=== PATIENT | female | born 1965 | race Two or more races ===

== ENCOUNTER 2020-02-11 17:02 | Inpatient (IN) | payer SELFPAY ==
[~2020-02-11] VITALS: Ht 162.6 cm; Wt 95.7 kg
[2020-02-11] MEDS ORDERED: DOXYCYCLINE 100MG/250ML 250 ML IV ONE (19:00)
[2020-02-11] MEDS ORDERED: AZITHROMYCIN 500MG/ 250ML 250 ML IV ONE (19:00)
[2020-02-11] MEDS ORDERED: DexAMETHasone SOD PHOS 10MG/1ML VIAL INJ IV ONE (19:00)
[2020-02-11] MEDS ORDERED: SODIUM CHLORIDE 0.9% 1,000 ML IV ONE (19:00)
[2020-02-11 22:58] LABS: Basophils # (auto) 0 10 ^3/uL (0-0.2); Basophils % (auto) 0.2 % (0.0-2.0); Eosinophils # (auto) 0 10 ^3/uL (0-0.8); Hematocrit 39.6 % (36.0-46.0); Hemoglobin 13.3 g/dL (12.2-16.2); Lymphocytes # (auto) 0.7 10 ^3/uL (0.4-5.4); Lymphocytes % (auto) 8.4 % (10.0-50.0); Mean Corpuscular Hemoglobin 28.3 pg (28.0-32.0); Mean Corpuscular Hgb Conc. 33.7 g/dL (32.0-36.0); Mean Corpuscular Volume 84.2 fL (80.0-100.0); Monocytes # (auto) 0.4 10 ^3/uL (0-1.3); Monocytes % (auto) 4.8 % (0.0-12.0); Neutrophils # (auto) 7.7 10 ^3/uL (1.6-8.6); Neutrophils % (auto) 86.6 % (37.0-80.0); Nucleated Red Blood Cells % 0.1 %; Platelet Count (auto) 248 10^3/uL (140-450); Red Cell Distribution Width 14.4 % (11.8-14.3); White Blood Cell 8.9 10^3/uL (4.4-10.8)
[2020-02-11 23:18] LABS: INR 0.98 (0.9-1.15); Partial Thromboplastin Time 31.3 sec (23.0-31.2)
[2020-02-11 23:24] LABS: Albumin 3.3 g/dL (3.4-5.0); Anion Gap 7 (5-15); Blood Urea Nitrogen 24 mg/dL (7-18); Calcium 8.7 mg/dL (8.5-10.1); Carbon Dioxide 28 mmol/L (21-32); Chloride 95 mmol/L (98-107); Glucose 116 mg/dL (74-106); Potassium 4.1 mmol/L (3.5-5.1); Sodium 130 mmol/L (136-145)
[2020-02-11 23:30] LABS: Alanine Aminotransferase 69 U/L (13-56); Alkaline Phosphatase 115 U/L (45-117); Aspartate Aminotransferase 86 U/L (15-37); BUN/Creatinine Ratio 25.5; Bilirubin, Total 0.4 mg/dL (0.2-1.0); GFR African American 80 mL/min; GFR Non-African American 66 mL/min; Total Protein 8.6 g/dL (6.4-8.2)
[2020-02-12] MEDS ORDERED: ACETAMINOPHEN 325 MG TAB PO ONE (00:30)
[2020-02-12] MEDS ORDERED: NITROGLYCERIN 0.4 MG SL TAB SL PRN (06:30)
[2020-02-12] MEDS ORDERED: DEXTROSE (50%) 50ML SYRG IV PRN (06:30)
[2020-02-12] MEDS ORDERED: DOCUSATE SOD 100 MG CAP PO PRN (06:30)
[2020-02-12] MEDS ORDERED: ONDANSETRON HCL 4 MG/2 ML VIAL IV PRN (06:30)
[2020-02-12] MEDS ORDERED: MORPHINE SULF INJ 2 MG/ML SYRINGE 1ML IV PRN (06:30)
[2020-02-12] MEDS: ACCU-CHEK COMFORT CURVE STRIP VI SCH ×4 (08:34→22:08)
[2020-02-12] MEDS: InsuLIN REG 1unit/0.01ml Soln (100units/ml) SC SCH ×4 (08:34→22:08)
[2020-02-12] MEDS: BUDESONIDE (INHALATION) 180 MCG IH IN SCH ×2 (09:15→20:55)
[2020-02-12] MEDS: ZINC SULFATE 220mg CAP or TAB PO SCH (10:02)
[2020-02-12] MEDS: CHOLECALCIFEROL (VITD3) 2,000 UNIT CAP PO SCH (10:02)
[2020-02-12] MEDS: ASCORBIC ACID 1,000 MG TAB PO SCH (10:02)
[2020-02-12] MEDS: MULTIPLE VITAMIN TAB PO SCH (10:02)
[2020-02-12] MEDS: DOXYCYCLINE 100MG/250ML 250 ML IV SCH ×2 (10:03→22:17)
[2020-02-12] MEDS: DexAMETHasone SOD PHOS 10MG/1ML VIAL INJ IV SCH (10:03)
[2020-02-12] MEDS: FAMOTIDINE (10MG/ML) 2ML VL IV SCH ×2 (10:03→22:07)
[2020-02-12] MEDS: HEPARIN SODIUM (PORCINE) 5000 UNITS/ML 1ML VIAL SC SCH ×2 (10:15→22:07)
[2020-02-12] MEDS: SODIUM CHLOR 0.9% PF (SALINE LOCK) 10ML VIAL/SYR IV SCH ×2 (12:22→22:07)
[2020-02-12] MEDS: ALBUTEROL SULF HFA 90MCG INH 200DOSE IN PRN (20:55)
[2020-02-12] MEDS: HYDROcodone-ACET 5/325MG TAB PO PRN (22:18)
[2020-02-12] MEDS: ACETAMINOPHEN 500 MG TAB PO PRN (23:53)
[2020-02-13] MEDS: SODIUM CHLOR 0.9% PF (SALINE LOCK) 10ML VIAL/SYR IV SCH ×3 (05:38→22:22)
[2020-02-13] MEDS: InsuLIN REG 1unit/0.01ml Soln (100units/ml) SC SCH ×4 (07:00→23:49)
[2020-02-13 07:25] LABS: Basophils # (auto) 0 10 ^3/uL (0-0.2); Basophils % (auto) 0.2 % (0.0-2.0); Eosinophils # (auto) 0 10 ^3/uL (0-0.8); Eosinophils % (auto) 0.1 % (0.0-7.0); Hematocrit 38.3 % (36.0-46.0); Hemoglobin 12.9 g/dL (12.2-16.2); Lymphocytes # (auto) 0.8 10 ^3/uL (0.4-5.4); Lymphocytes % (auto) 11.4 % (10.0-50.0); Mean Corpuscular Hemoglobin 28.2 pg (28.0-32.0); Mean Corpuscular Hgb Conc. 33.7 g/dL (32.0-36.0); Mean Corpuscular Volume 83.5 fL (80.0-100.0); Monocytes # (auto) 0.6 10 ^3/uL (0-1.3); Monocytes % (auto) 8.1 % (0.0-12.0); Neutrophils # (auto) 5.6 10 ^3/uL (1.6-8.6); Neutrophils % (auto) 80.2 % (37.0-80.0); Platelet Count (auto) 263 10^3/uL (140-450); Red Blood Cells 4.59 10^6/uL (4.0-5.20); White Blood Cell 6.9 10^3/uL (4.4-10.8)
[2020-02-13 08:09] LABS: Albumin 2.9 g/dL (3.4-5.0); Calcium 9.5 mg/dL (8.5-10.1); Potassium 3.8 mmol/L (3.5-5.1)
[2020-02-13 08:14] LABS: BUN/Creatinine Ratio 31.8; Bilirubin, Total 0.4 mg/dL (0.2-1.0); Total Protein 8.1 g/dL (6.4-8.2)
[2020-02-13] MEDS: ALBUTEROL SULF HFA 90MCG INH 200DOSE IN PRN (09:15)
[2020-02-13] MEDS: ACCU-CHEK COMFORT CURVE STRIP VI SCH ×4 (09:22→23:04)
[2020-02-13] MEDS: BUDESONIDE (INHALATION) 180 MCG IH IN SCH ×2 (10:00→22:00)
[2020-02-13] MEDS: FAMOTIDINE (10MG/ML) 2ML VL IV SCH ×2 (10:16→22:21)
[2020-02-13] MEDS: DexAMETHasone SOD PHOS 10MG/1ML VIAL INJ IV SCH (10:16)
[2020-02-13] MEDS: MULTIPLE VITAMIN TAB PO SCH (10:17)
[2020-02-13] MEDS: DOXYCYCLINE 100MG/250ML 250 ML IV SCH ×2 (10:17→22:22)
[2020-02-13] MEDS: ZINC SULFATE 220mg CAP or TAB PO SCH (10:17)
[2020-02-13] MEDS: CHOLECALCIFEROL (VITD3) 2,000 UNIT CAP PO SCH (10:17)
[2020-02-13] MEDS: ASCORBIC ACID 1,000 MG TAB PO SCH (10:17)
[2020-02-13] MEDS: HEPARIN SODIUM (PORCINE) 5000 UNITS/ML 1ML VIAL SC SCH (10:18)
[2020-02-13] MEDS ORDERED: REMDESIVIR PER PHARMACY 0 ML IV SCH (12:00)
[2020-02-13] MEDS ORDERED: REMDESIVIR 200 MG in NS 210ml LOADING DOSE ADULT IV ONE (15:00)
[2020-02-13 22:05] VITALS: BP 113/77
[2020-02-13] MEDS: ENOXAPARIN SOD 40 MG/0.4 ML SYRINGE SC SCH (22:22)
[2020-02-13 23:17] VITALS: BP 113/77
[2020-02-13] MEDS ORDERED: HCTZ25T GT (23:45)
[2020-02-13] MEDS ORDERED: ENAL2.5T7 PO (23:45)
[2020-02-13] MEDS ORDERED: OMEP-434 PO (23:45)
[2020-02-13] MEDS ORDERED: METF-371 PO (23:45)
[2020-02-13] MEDS: HYDROcodone-ACET 5/325MG TAB PO PRN (23:46)
[2020-02-13] MEDS: INSULIN LANTUS (GLARGINE) 1 /0.01ml (100units/ml) SC SCH (23:50)
[2020-02-14 05:11] VITALS: BP 100/66
[2020-02-14 06:09] LABS: Urine Bacteria NONE SEEN /hpf (None Seen); Urine Blood Negative /uL (Negative); Urine Mucus FEW (None Seen); Urine Specific Gravity 1.027 (1.001-1.035); Urine WBC 2 /hpf (0 - 5)
[2020-02-14] MEDS: ACCU-CHEK COMFORT CURVE STRIP VI SCH ×4 (06:13→22:27)
[2020-02-14] MEDS: InsuLIN REG 1unit/0.01ml Soln (100units/ml) SC SCH ×4 (06:13→22:00)
[2020-02-14] MEDS: SODIUM CHLOR 0.9% PF (SALINE LOCK) 10ML VIAL/SYR IV SCH ×3 (06:13→21:38)
[2020-02-14 08:12] LABS: Potassium 3.5 mmol/L (3.5-5.1)
[2020-02-14 08:22] LABS: Bilirubin, Total 0.4 mg/dL (0.2-1.0); Calcium 9.8 mg/dL (8.5-10.1); Total Protein 7.8 g/dL (6.4-8.2)
[2020-02-14 09:00] VITALS: BP 115/78
[2020-02-14] MEDS: DexAMETHasone SOD PHOS 10MG/1ML VIAL INJ IV SCH (09:47)
[2020-02-14] MEDS: MULTIPLE VITAMIN TAB PO SCH (09:48)
[2020-02-14] MEDS: CHOLECALCIFEROL (VITD3) 2,000 UNIT CAP PO SCH (09:48)
[2020-02-14] MEDS: ASCORBIC ACID 1,000 MG TAB PO SCH (09:48)
[2020-02-14] MEDS: ZINC SULFATE 220mg CAP or TAB PO SCH (09:48)
[2020-02-14] MEDS: FAMOTIDINE (10MG/ML) 2ML VL IV SCH ×2 (09:49→21:38)
[2020-02-14] MEDS: DOXYCYCLINE 100MG/250ML 250 ML IV SCH ×2 (09:49→21:39)
[2020-02-14] MEDS: ENOXAPARIN SOD 40 MG/0.4 ML SYRINGE SC SCH ×2 (09:49→21:38)
[2020-02-14] MEDS: HYDROcodone-ACET 5/325MG TAB PO PRN (10:13)
[2020-02-14 13:00] VITALS: BP 118/84
[2020-02-14] MEDS: BUDESONIDE (INHALATION) 180 MCG IH IN SCH ×2 (13:59→19:45)
[2020-02-14] MEDS ORDERED: guaiFENesin-DM 100/10mg/5ml SYR PO PRN (14:00)
[2020-02-14] MEDS ORDERED: POTASSIUM CHL 10 Meq TABLET PO ONE (14:00)
[2020-02-14] MEDS ORDERED: FUROSEMIDE 40 MG/4 ML VIAL IV ONE (14:00)
[2020-02-14] MEDS: ALBUTEROL SULF HFA 90MCG INH 200DOSE IN PRN (14:00)
[2020-02-14] MEDS: REMDESIVIR 100 MG in SODIUM CHL 0.9% 250 ML IV SCH (16:40)
[2020-02-14 16:43] VITALS: BP 117/78
[2020-02-14 22:00] VITALS: BP 112/74
[2020-02-14] MEDS: INSULIN LANTUS (GLARGINE) 1 /0.01ml (100units/ml) SC SCH (22:00)
[2020-02-15] MEDS: ALBUTEROL SULF HFA 90MCG INH 200DOSE IN PRN ×3 (01:24→20:50)
[2020-02-15] MEDS: SODIUM CHLOR 0.9% PF (SALINE LOCK) 10ML VIAL/SYR IV SCH ×3 (05:31→22:00)
[2020-02-15] MEDS: InsuLIN REG 1unit/0.01ml Soln (100units/ml) SC SCH ×4 (06:12→22:00)
[2020-02-15] MEDS: ACCU-CHEK COMFORT CURVE STRIP VI SCH ×4 (06:12→22:00)
[2020-02-15 07:39] LABS: Potassium 3.5 mmol/L (3.5-5.1)
[2020-02-15 07:44] LABS: Albumin 3.1 g/dL (3.4-5.0); BUN/Creatinine Ratio 42.1
[2020-02-15 07:46] LABS: Bilirubin, Total 0.3 mg/dL (0.2-1.0); Total Protein 7.5 g/dL (6.4-8.2)
[2020-02-15] MEDS: BUDESONIDE (INHALATION) 180 MCG IH IN SCH ×3 (07:52→20:50)
[2020-02-15 09:00] VITALS: BP 130/70
[2020-02-15] MEDS: ASCORBIC ACID 1,000 MG TAB PO SCH (09:09)
[2020-02-15] MEDS: CHOLECALCIFEROL (VITD3) 2,000 UNIT CAP PO SCH (09:10)
[2020-02-15] MEDS: ENOXAPARIN SOD 40 MG/0.4 ML SYRINGE SC SCH ×2 (09:10→22:44)
[2020-02-15] MEDS: ZINC SULFATE 220mg CAP or TAB PO SCH (09:10)
[2020-02-15] MEDS: MULTIPLE VITAMIN TAB PO SCH (09:11)
[2020-02-15] MEDS: POTASSIUM CHL 10 Meq TABLET PO SCH (09:11)
[2020-02-15] MEDS: DexAMETHasone SOD PHOS 10MG/1ML VIAL INJ IV SCH (09:12)
[2020-02-15] MEDS: FUROSEMIDE 40 MG/4 ML VIAL IV SCH (09:12)
[2020-02-15] MEDS: DOXYCYCLINE 100MG/250ML 250 ML IV SCH ×2 (11:49→22:48)
[2020-02-15] MEDS: SALINE 0.65 % NASAL SPRAY 45ML BOTTLE EACHNOSTRI SCH ×2 (12:00→22:45)
[2020-02-15 13:00] VITALS: BP 143/81
[2020-02-15] MEDS: REMDESIVIR 100 MG in SODIUM CHL 0.9% 250 ML IV SCH (15:54)
[2020-02-15 16:00] VITALS: BP 104/77
[2020-02-15] MEDS: ACETAMINOPHEN 500 MG TAB PO PRN (18:45)
[2020-02-15] MEDS: INSULIN LANTUS (GLARGINE) 1 /0.01ml (100units/ml) SC SCH (22:00)
[2020-02-16] VITALS: BP_SYST 117; BP_SYST 135; BP_DIAS 74; BP_DIAS 77
[2020-02-16] MEDS: SODIUM CHLOR 0.9% PF (SALINE LOCK) 10ML VIAL/SYR IV SCH ×3 (05:34→21:30)
[2020-02-16] MEDS: InsuLIN REG 1unit/0.01ml Soln (100units/ml) SC SCH ×4 (06:09→22:03)
[2020-02-16] MEDS: SALINE 0.65 % NASAL SPRAY 45ML BOTTLE EACHNOSTRI SCH ×4 (06:09→21:31)
[2020-02-16] MEDS: ACCU-CHEK COMFORT CURVE STRIP VI SCH ×4 (06:09→22:03)
[2020-02-16 08:02] LABS: Basophils # (auto) 0 10 ^3/uL (0-0.2); Basophils % (auto) 0.3 % (0.0-2.0); Eosinophils # (auto) 0 10 ^3/uL (0-0.8); Eosinophils % (auto) 0.2 % (0.0-7.0); Hematocrit 36.4 % (36.0-46.0); Hemoglobin 12.4 g/dL (12.2-16.2); Lymphocytes # (auto) 1.1 10 ^3/uL (0.4-5.4); Lymphocytes % (auto) 13.8 % (10.0-50.0); Mean Corpuscular Volume 82.2 fL (80.0-100.0); Monocytes # (auto) 0.7 10 ^3/uL (0-1.3); Monocytes % (auto) 7.8 % (0.0-12.0); Neutrophils # (auto) 6.5 10 ^3/uL (1.6-8.6); Neutrophils % (auto) 77.9 % (37.0-80.0); Nucleated Red Blood Cells % 0.1 %; Platelet Count (auto) 354 10^3/uL (140-450); Red Blood Cells 4.43 10^6/uL (4.0-5.20); Red Cell Distribution Width 13.8 % (11.8-14.3); White Blood Cell 8.3 10^3/uL (4.4-10.8)
[2020-02-16 08:29] LABS: Potassium 3.7 mmol/L (3.5-5.1)
[2020-02-16 08:41] LABS: BUN/Creatinine Ratio 44.6; Bilirubin, Total 0.4 mg/dL (0.2-1.0); CRP High Sensitivity 0.84 mg/dL (< 0.3); Calcium 9.3 mg/dL (8.5-10.1); Total Protein 7.3 g/dL (6.4-8.2)
[2020-02-16 09:00] VITALS: BP 110/71
[2020-02-16] MEDS: BUDESONIDE (INHALATION) 180 MCG IH IN SCH ×2 (09:57→19:08)
[2020-02-16] MEDS: ALBUTEROL SULF HFA 90MCG INH 200DOSE IN PRN ×2 (09:57→19:08)
[2020-02-16] MEDS: DOXYCYCLINE 100MG/250ML 250 ML IV SCH ×3 (10:32→21:30)
[2020-02-16] MEDS: DexAMETHasone SOD PHOS 10MG/1ML VIAL INJ IV SCH (10:32)
[2020-02-16] MEDS: PANTOPRAZOLE 40 MG TAB PO SCH (10:33)
[2020-02-16] MEDS: POTASSIUM CHL 10 Meq TABLET PO SCH (10:33)
[2020-02-16] MEDS: MULTIPLE VITAMIN TAB PO SCH (10:33)
[2020-02-16] MEDS: CHOLECALCIFEROL (VITD3) 2,000 UNIT CAP PO SCH (10:33)
[2020-02-16] MEDS: ZINC SULFATE 220mg CAP or TAB PO SCH (10:33)
[2020-02-16] MEDS: ASCORBIC ACID 1,000 MG TAB PO SCH (10:33)
[2020-02-16] MEDS: ENOXAPARIN SOD 40 MG/0.4 ML SYRINGE SC SCH ×2 (10:34→22:05)
[2020-02-16] MEDS ORDERED: ASPI81CH43 PO (10:51)
[2020-02-16] MEDS ORDERED: ALBUAER3 IN (10:51)
[2020-02-16] MEDS ORDERED: DEX4T PO (10:51)
[2020-02-16] MEDS: FUROSEMIDE 40 MG/4 ML VIAL IV SCH (10:54)
[2020-02-16] MEDS: REMDESIVIR 100 MG in SODIUM CHL 0.9% 250 ML IV SCH (15:31)
[2020-02-16 16:30] VITALS: BP 101/74
[2020-02-16 21:26] VITALS: BP 116/72
[2020-02-16 21:51] VITALS: BP 105/69
[2020-02-16 22:00] VITALS: BP 116/72
[2020-02-16] MEDS: INSULIN LANTUS (GLARGINE) 1 /0.01ml (100units/ml) SC SCH (22:04)
[2020-02-17 00:25] VITALS: BP 107/77
[2020-02-17] MEDS ORDERED: TEMAZEPAM 15 MG CAP PO ONE (00:45)
[2020-02-17] MEDS: SODIUM CHLOR 0.9% PF (SALINE LOCK) 10ML VIAL/SYR IV SCH ×2 (05:40→13:41)
[2020-02-17] MEDS: SALINE 0.65 % NASAL SPRAY 45ML BOTTLE EACHNOSTRI SCH ×2 (06:00→12:39)
[2020-02-17] MEDS: ACCU-CHEK COMFORT CURVE STRIP VI SCH ×2 (06:13→11:30)
[2020-02-17] MEDS: InsuLIN REG 1unit/0.01ml Soln (100units/ml) SC SCH ×2 (06:13→11:30)
[2020-02-17 07:43] LABS: Albumin 3.2 g/dL (3.4-5.0); Potassium 3.8 mmol/L (3.5-5.1)
[2020-02-17 07:46] LABS: Bilirubin, Total 0.4 mg/dL (0.2-1.0); Total Protein 7.2 g/dL (6.4-8.2)
[2020-02-17] MEDS ORDERED: DOXYCYCLINE 100 MG TAB/CAP PO ONE (10:00)
[2020-02-17] MEDS: DexAMETHasone SOD PHOS 10MG/1ML VIAL INJ IV SCH (11:29)
[2020-02-17] MEDS: FUROSEMIDE 40 MG/4 ML VIAL IV SCH (11:30)
[2020-02-17] MEDS: ZINC SULFATE 220mg CAP or TAB PO SCH (11:32)
[2020-02-17] MEDS: PANTOPRAZOLE 40 MG TAB PO SCH (11:32)
[2020-02-17] MEDS: MULTIPLE VITAMIN TAB PO SCH (11:32)
[2020-02-17] MEDS: POTASSIUM CHL 10 Meq TABLET PO SCH (11:32)
[2020-02-17] MEDS: ASCORBIC ACID 1,000 MG TAB PO SCH (11:33)
[2020-02-17] MEDS: CHOLECALCIFEROL (VITD3) 2,000 UNIT CAP PO SCH (11:34)
[2020-02-17] MEDS: ENOXAPARIN SOD 40 MG/0.4 ML SYRINGE SC SCH (11:34)
[2020-02-17 13:56] VITALS: BP 118/76
[2020-02-17] MEDS: REMDESIVIR 100 MG in SODIUM CHL 0.9% 250 ML IV SCH (14:41)
== END 2020-02-17 16:40 | disposition home or self-care (01) | DRG 177 ==
LOC: EDBD 17:02 → ER 17:02 → OVERFLOW 17:03 → TELE-WESTW 02-13 22:05
PROVIDERS: ADMIT Nurse Practitioner Family; ATTEND Internal Medicine
PROC: XW033E5 Introduction of Remdesivir Anti-infective into Peripheral Vein, Percutaneous Approach, New Technology Group 5 (ICD-10-PCS; principal; 2020-02-13)
PROC: XW13325 Transfusion of Convalescent Plasma (Nonautologous) into Peripheral Vein, Percutaneous Approach, New Technology Group 5 (ICD-10-PCS; 2020-02-16)
DX: U07.1 COVID-19 (principal); J12.89 Other viral pneumonia; J96.01 Acute respiratory failure with hypoxia; E87.1 Hypo-osmolality and hyponatremia; R65.10 Systemic inflammatory response syndrome (SIRS) of non-infectious origin without acute organ dysfunction; E44.0 Moderate protein-calorie malnutrition; E11.9 Type 2 diabetes mellitus without complications; E66.01 Morbid (severe) obesity due to excess calories; E78.5 Hyperlipidemia, unspecified; E88.81 Metabolic syndrome and other insulin resistance; R74.01 Elevation of levels of liver transaminase levels; I10 Essential (primary) hypertension; R79.89 Other specified abnormal findings of blood chemistry; Z68.36 Body mass index [BMI] 36.0-36.9, adult; Z79.899 Other long term (current) drug therapy
CPT/HCPCS: 36415; 36600; 71045; 80053; 81001; 82728; 82805; 82962; 83036; 83605; 83615; 83735; 83880; 84443; 84484; 85025; 85379; 85610; 85730; 86141; 86850; 86900; 86901; 87040; 87086; 87426; 93970; 94640; G0378; J1100; J1815; J3490